=== PATIENT | female | born 1935 | race Asian ===

== ENCOUNTER 2018-04-11 06:31 | Inpatient (IN) | END 2018-04-16 17:00 | DRG 470 ==

== ENCOUNTER → 2018-09-24 | Outpatient (CLI) | payer OTHER, MEDICARE ==
[~2018-09-24] MED LIST: ALEN70TA5 PO; ALLO100T PO; CHLO25TA2 PO; ERGO500013 PO; ISOS30TA20 PO; NEBI10TA2 PO; ROSU10TA55 PO; VALS160T20 PO
== END | disposition home or self-care (01) ==
LOC: LAB 10:15
PROVIDERS: ATTEND Internal Medicine Rheumatology
DX: E34.9 Endocrine disorder, unspecified (principal)
CPT/HCPCS: 80048; 80061; 80076; 81001; 82306; 83036; 84436; 84443; 84560; 85025; 85651; 86140

== ENCOUNTER → 2019-01-10 | Outpatient (CLI) | payer OTHER ==
[~2019-01-10] MED LIST changes: -ROSU10TA55 PO; +RSV10T PO
== END | disposition home or self-care (01) ==
LOC: LAB 07:19
PROVIDERS: ATTEND Internal Medicine Rheumatology
DX: I50.9 Heart failure, unspecified (principal); E34.9 Endocrine disorder, unspecified
CPT/HCPCS: 80048; 80061; 80076; 81001; 82306; 83036; 83880; 84436; 84443; 85025; 85651; 86140